=== PATIENT | male | born 1990 | race African-American/Black ===

== ENCOUNTER 2020-10-10 19:59 | Emergency (ER) | payer MEDICAID ==
[~2020-10-10] VITALS: Ht 165.1 cm; Wt 62.0 kg
[2020-10-10] MEDS ORDERED: ACETAMINOPHEN 325MG TABLET PO NR (22:00)
[2020-10-10] MEDS ORDERED: BACITRACIN ZINC OINT UDPKT TOP ONE (22:30)
[2020-10-10] MEDS ORDERED: HYDROCODONE/ACETAMINOPHEN 5/325MG TABLET PO ONE (22:30)
[2020-10-10] MEDS ORDERED: LIDOCAINE HCL/PF 1% 10 MG/ML 5ML VIAL IJ ONE (22:30)
[2020-10-10] MEDS ORDERED: TETANUS, DIPHTHERIA, PERTUSSIS VAC/PF 0.5ML (>7YR OLD) IM ONE (22:30)
[2020-10-11] MEDS ORDERED: KETOROLAC 30MG/ML VIAL IM ONE (01:30)
[2020-10-11] MEDS ORDERED: LIDOCAINE HCL/PF 1% 10 MG/ML 5ML VIAL IJ ONE (07:00)
[2020-10-11] MEDS ORDERED: ACETAMINOPHEN WITH CODEINE 300/30MG TABLET PO ONE (07:15)
[2020-10-11] MEDS ORDERED: IBUP-2028 PO ×3 (07:49→07:51)
[2020-10-11] MEDS ORDERED: T3 PO (07:49)
[2020-10-11 08:14] VITALS: BP 15/72
== END 2020-10-11 08:24 | disposition home or self-care (01) ==
LOC: ER 19:59
DX: S61.216A Laceration without foreign body of right little finger without damage to nail, initial encounter (principal); W27.8XXA Contact with other nonpowered hand tool, initial encounter; Y93.89 Activity, other specified; Y92.89 Other specified places as the place of occurrence of the external cause; Z23 Encounter for immunization
CPT/HCPCS: 12002; 73140; 90471; 90715; 99285; A4217; J1885; J3490; Z7610

== ENCOUNTER 2020-10-26 09:32 | Emergency (ER) | payer MEDICAID ==
[~2020-10-26] VITALS: Ht 167.6 cm; Wt 65.0 kg
[~2020-10-26 09:32] MED LIST: IBUP-2028 PO; T3 PO
[2020-10-26 09:36] VITALS: BP 128/56
[2020-10-26] MEDS ORDERED: BACITRACIN ZINC OINT UDPKT TOP ONE (10:30)
== END 2020-10-26 10:54 | disposition home or self-care (01) ==
LOC: ER 09:32
DX: Z48.00 Encounter for change or removal of nonsurgical wound dressing (principal)
CPT/HCPCS: 99282; Z7610